=== PATIENT | female | born 1985 | race Caucasian/White ===

== ENCOUNTER 2019-10-23 15:56 | Emergency (ER) | payer MEDICAID, OTHER ==
[~2019-10-23] VITALS: Ht 167.6 cm; Wt 63.5 kg
--- NOTE | 2019-10-23 15:57 | NUR ---
[facility] TO ER BED 06
[2019-10-23 16:07] VITALS: BP 109/67
--- NOTE | 2019-10-23 16:07 | NUR ---
PT BIBA FROM HOME DUE TO OVERDOSE ON MEDICATION PER EMS. PER EMS, FAMILY CALLED 911 DUE TO PATIENT NOT WAKING UP AFTER TAKING MEDICATION. PT PRESENTS A/OX4, EUPNIC,BP WNL, TACHY 113, 99% RA, COOPERATIVE, CALM. NO DISTRESS NOTED. NO PAIN. PER PT ONLY TOOK TWO PILLS, ONE LITHIUM FOR BIPOLAR AND ONE ZYPREXA FOR PTSD. DENIES DTO/DTS/GD. ALLERGIES PNC. HX BIPOLAR,HTN,PTSD. RX ZYPREXA,LITHIUM. NO NVD. SIDE RAIL X1.
--- NOTE | 2019-10-23 16:16 | NUR ---
CALLED POISON CONTROL AT SPOKE TO SHAHIDA. PER SHAHIDA THERE ARE NO CLEAR OBSERVATION HOURS FOR PT. SHE RECOMMENDS A LITHIUM, AND CHEM DRAW EVERY 4 HRS, UNTIL CLEAR PEAK AND DOWNTREND X 2. ALSO NS @ 150-200 ML/HR, SHE STATES THIS HELPS TO EXCRETE LITHIUM FROM THE KIDNEYS. JACOBO MADE AWARE OF POISON CONTROL'S RECOMMENDATIONS.
--- NOTE | 2019-10-23 16:44 | NUR ---
TELEPSYCH ORDERED PER DR GRIFFITHS
[2019-10-23 16:47] LABS: BASOPHILS % (AUTO) 0.6 % (0.0-2.0); EOSINOPHILS # (AUTO) 0.2 K/uL (0-0.4); EOSINOPHILS % (AUTO) 1.9 % (0.0-4.0); HEMATOCRIT 38.4 % (36-48); HEMOGLOBIN 12.7 g/dL (12.0-16.0); LYMPHOCYTES # (AUTO) 2.2 K/uL (2.5-16.5); LYMPHOCYTES % (AUTO) 26.5 % (20.5-51.1); MEAN CORPUSCULAR HEMOGLOBIN 29 pg (27-31); MEAN CORPUSCULAR HGB CONC 33 g/dL (33-37); MEAN CORPUSCULAR VOLUME 87.7 fL (80-94); MONOCYTES # (AUTO) 0.9 K/uL (0.8-1.0); MONOCYTES % (AUTO) 11.1 % (1.7-9.3); NEUTROPHILS # (AUTO) 4.9 K/uL (1.8-7.7); NEUTROPHILS % (AUTO) 59.9 % (42.2-75.2); PLATELET COUNT (AUTO) 270 K/uL (140-450); RED BLOOD CELL COUNT(AUTO) 4.38 MIL/uL (4.20-5.40); RED CELL DISTRIBUTION WIDTH 15.2 % (11.6-13.7); WHITE BLOOD COUNT (AUTO) 8.1 K/uL (4.8-10.8)
[2019-10-23] MEDS: NACL 0.9% 1,000 ML IV ONE (16:47)
[2019-10-23 16:49] LABS: APPEARANCE,URINE CLEAR (CLEAR); BILIRUBIN,URINE 1+ (NEGATIVE); BLOOD, URINE 3+ (NEGATIVE); COLOR,URINE YELLOW (YELLOW); LEUKOCYTE ESTERASE ,URINE NEGATIVE (NEGATIVE); NITRITE, URINE NEGATIVE (NEGATIVE); UGLUCOSE NEGATIVE (NEGATIVE)
[2019-10-23 17:01] LABS: RBC,URINE 20-50 /HPF (0-5); WBC,URINE 0-5 /HPF (0-5)
[2019-10-23 17:02] LABS: ALBUMIN 3.9 g/dL (3.4-5.0); ANION GAP 10.7 (8-16); ASPARTATE AMINOTRANSFERASE 16 U/L (15-37); CARBON DIOXIDE 30.9 mmol/L (21-32); CHLORIDE 100 mmol/L (98-107); CREATININE 0.9 mg/dL (0.6-1.3); GFR ARICAN-AMERICAN 93 mL/min (>90); GLUCOSE 77 mg/dL (74-106); SODIUM SERUM 139 mmol/L (136-145); TOTAL BILIRUBIN 0.4 mg/dL (0.0-1.0); UREA NITROGEN, BLOOD 16 mg/dL (7-18)
[2019-10-23 17:05] LABS: ACETAMINOPHEN < 0.5 ug/ml (10-30); POTASSIUM 2.6 mmol/L (3.5-5.1); SALICYLATE < 2.8 mg/dL (2.8-20.0)
--- NOTE | 2019-10-23 17:09 | NUR ---
PT CANNOT BE AROUSED TO TALK AT THIS TIME. WILL DO ANOTHER PSYCHIATRIC COUNSELING LATER.
[2019-10-23 17:28] LABS: BARBITURATE, URINE NEGATIVE ng/ml (NEG <=200); BENZODIAZEPINE, URINE NEGATIVE ng/mL (NEG <=200); CANNABINOID, URINE POSITIVE ng/mL (NEG <=50); COCAINE, URINE NEGATIVE ng/mL (NEG <=300); OPIATE, URINE NEGATIVE ng/mL (NEG <=2000); PHENCYCLIDINE SCREEN,URINE NEGATIVE ng/mL (NEG <=25)
--- NOTE | 2019-10-23 18:00 | NUR ---
SENT TELEPSYCH FOR A SECOND TIME PER DR. GRIFFITHS
--- NOTE | 2019-10-23 18:18 | NUR ---
TELEPSYCH DOCTOR ATTEMPTED TO INTERVIEW PT AGAIN, PT WASN'T AROUSABLE TO NAME. PT WOULD WAKE UP TO TOUCH, AND FALL RIGHT BACK ASLEEP. TELEPSYCH DOCTOR STATED TO CONTACT HIM ONCE PT IS A&O, THEN HE WILL COMPLETE ASSESSMENT.
[2019-10-23] MEDS: POTASSIUM CHLORIDE 10 MEQ TABER PO ONE (18:19)
--- NOTE | 2019-10-23 18:39 | NUR ---
PT SLEEPING IN BED. NOT AROUSABLE TO NAME, BUT BY TOUCH. VSS, R/R EQUAL AND UNLABORED. SIDE RAIL X2, BED IN LOW POSITION, WILL CONTINUE TO MONITOR.
--- NOTE | 2019-10-23 19:14 | NUR ---
Pt report RECEIVED FROM CRISTAL STRINGER. Transfer of care at this time.
--- NOTE | 2019-10-23 19:27 | NUR ---
PT'S SON CHRIS CALLED AND STATED PT SHOWED UP TO HIS HOUSE YESTERDAY AND STATED SHE TRIED TO HANG HERSELF. UPON ASSESSING PT'S NECK, THERE IS NO BRUISING OR VYAS AROUND THE NECK. PT DENIES TRYING TO HARM SELF WHEN WOKEN UP. CHRIS STATES PT HAS PMH OF SCHIZOPHRENIA, AND BIPOLAR DISORDER, AND HAS A HISTORY OF LEAVING AMA. HE STATES HE IS AFRAID FOR HIS MOTHER, AND SHE HAS A HISTORY OF BECOMING COMBATIVE. HE WOULD LIKE TO BE CALLED WHEN MOTHER IS DISCHARGED OR IF SHE IS RETAINED, AND STATED HE COULD BE REACHED IF MORE MEDICAL HISTORY IS NEEDED FOR PT. CHRIS #[phone] INFORMATION PAST ON TO SUDHEER PANG; AND CRISTAL RAMIREZ
--- NOTE | 2019-10-23 20:27 | NUR ---
AT BEDSIDE SPEAKING WITH PT
--- NOTE | 2019-10-23 21:01 | NUR ---
PT ASLEEP IN BED IN POSITION OF COMFORT, BED LOW AND LOCKED, SIDERAILS UP, VSS, WILL CONTINUE TO MONITOR.
--- NOTE | 2019-10-23 21:08 | NUR ---
SPOKE WITH ROBERT (PHARMACIST) FROM POISON CONTROL @ [phone] AND GAVE UPDATE REGARDING RECENT LABS. ROBERT ADVISED TO OBTAIN LITHIUM LEVEL, SO WILL INFORM JACOBO LAGUNAS.
--- NOTE | 2019-10-23 21:58 | NUR ---
JOSE (SISTER) CALLED FOR UPDATE, JUST INFORMED HER PT IS STABLE .
--- NOTE | 2019-10-23 23:33 | NUR ---
AT BEDSIDE SPEAKING WITH PT
--- NOTE | 2019-10-23 23:36 | NUR ---
PER REPEAT TELEPSYCH REQUEST INITIATED
--- NOTE | 2019-10-23 23:42 | NUR ---
SPOKE TO JUVENAL (PHARMACIST) FROM POISON CONTROL WHO PHONED BACK FOR UPDATE. INFORMED PHARMACIST WE SENF OUT OUR LITHIUM LAB DRAW AND TO PHONE BACK LATER TO SEE IF WE HAVE THE LAB RESULTS YET.
--- NOTE | 2019-10-23 23:52 | NUR ---
PT EATING FOOD AT BEDSIDE.
--- NOTE | 2019-10-24 00:01 | NUR ---
PT SITTING UP HAVING TELE PSYCH APPOINTMENT
--- NOTE | 2019-10-24 00:37 | NUR ---
PT GIVEN ANOTHER SANDWHICH PER PT REQUEST. BLANKET PROVIDED. ALL PT NEEDS MET AT THIS TIME.
--- NOTE | 2019-10-24 00:59 | NUR ---
CALLED PTS KATHRINE PINEDO [phone] IN ATTEMPT TO FIND A RIDE HOME FOR DISCHARGED PT. MOM REFUSED TO COME STUDENT EDUCATION SPECIALIST PT. SHE SAID "SHE IS CAUSING TROUBLE AT HER HOUSE AND IT WOULD BE OK IF SHE WAS DISCHARGED WITHOUT A RIDE."
--- NOTE | 2019-10-24 01:03 | NUR ---
CALLED PTS SISTER JOSE [phone] IN AN ATTEMPT TO GET A RIDE FOR PT HOME. SISTER AGREED TO COME PUBLICATION EDITOR PT IN 15 MIN.
--- NOTE | 2019-10-24 01:08 | NUR ---
Patient discharged with v/s stable. Written and verbal after care instructions given and explained. Patient verbalized understanding. Ambulatory with steady gait. All questions addressed prior to discharge. Advised to follow up with PMD.
[2019-10-24 01:13] VITALS: BP 101/64
== END 2019-10-24 01:08 | disposition home or self-care (01) ==
LOC: MED 15:56
DX: R41.82 Altered mental status, unspecified (principal); F17.210 Nicotine dependence, cigarettes, uncomplicated; F31.89 Other bipolar disorder; I10 Essential (primary) hypertension; Z88.0 Allergy status to penicillin
CPT/HCPCS: 36415; 80053; 80178; 80305; 81001; 81025; 84484; 85025; 93005; 99284; G0480; G0482; J7030

== ENCOUNTER 2020-07-30 11:52 | Emergency (ER) | payer OTHER ==
[~2020-07-30] VITALS: Ht 154.9 cm; Wt 89.8 kg
[2020-07-30 11:59] VITALS: BP 110/58
--- NOTE | 2020-07-30 12:09 | NUR ---
Patient ambulated to bed 3. RN evaluating the patient at bedside.
--- NOTE | 2020-07-30 12:12 | NUR ---
Dr. Hinojosa is evaluating the patient at bedside.
--- NOTE | 2020-07-30 12:24 | NUR ---
PATIENT PRESENTS TO ED WITH LOWER ABD PAIN STARTED 2 WEEKS AGO . PT STATES SHE HAD POSITIVE TEST AND STATED HAD STOP TAKING HER MEDICATIONS SINCE MOTHER'S DAY . DENIES N/V/D; SKIN IS PINK/WARM/DRY; AAOX4 WITH EVEN AND STEADY GAIT; LUNGS CLEAR BL; HR EVEN AND REGULAR; PT DENIES ANY FEVER, CP, SOB, OR COUGH AT THIS TIME; PATIENT STATES PAIN OF 5/10 TO THE LOWER ABD. AT THIS TIME; VSS; PATIENT POSITIONED FOR COMFORT; HOB ELEVATED; BEDRAILS UP X2; BED DOWN. ER MD MADE AWARE OF PT STATUS.
[2020-07-30 12:34] LABS: APPEARANCE,URINE CLOUDY (CLEAR); BILIRUBIN,URINE NEGATIVE (NEGATIVE); BLOOD, URINE TRACE-I (NEGATIVE); COLOR,URINE YELLOW (YELLOW); LEUKOCYTE ESTERASE ,URINE NEGATIVE (NEGATIVE); NITRITE, URINE NEGATIVE (NEGATIVE); UGLUCOSE NEGATIVE (NEGATIVE)
[2020-07-30 12:37] LABS: BASOPHILS % (AUTO) 0.3 % (0.0-2.0); EOSINOPHILS # (AUTO) 0.2 K/uL (0-0.4); EOSINOPHILS % (AUTO) 2.8 % (0.0-4.0); HEMATOCRIT 37.5 % (36-48); HEMOGLOBIN 12.5 g/dL (12.0-16.0); LYMPHOCYTES # (AUTO) 1.5 K/uL (2.5-16.5); MEAN CORPUSCULAR HEMOGLOBIN 29 pg (27-31); MEAN CORPUSCULAR HGB CONC 33 g/dL (33-37); MEAN CORPUSCULAR VOLUME 87.9 fL (80-94); MONOCYTES # (AUTO) 0.6 K/uL (0.8-1.0); MONOCYTES % (AUTO) 9.3 % (1.7-9.3); NEUTROPHILS # (AUTO) 3.9 K/uL (1.8-7.7); NEUTROPHILS % (AUTO) 62.6 % (42.2-75.2); PLATELET COUNT (AUTO) 248 K/uL (140-450); RED BLOOD CELL COUNT(AUTO) 4.27 MIL/uL (4.20-5.40); RED CELL DISTRIBUTION WIDTH 15.1 % (11.6-13.7); WHITE BLOOD COUNT (AUTO) 6.2 K/uL (4.8-10.8)
[2020-07-30 12:57] LABS: RBC,URINE 0-5 /HPF (0-5); WBC,URINE 0-5 /HPF (0-5)
[2020-07-30 13:02] LABS: ALBUMIN 2.9 g/dL (3.4-5.0); ANION GAP 10.3 (8-16); CARBON DIOXIDE 27.6 mmol/L (21-32); CREATININE 0.5 mg/dL (0.6-1.3); POTASSIUM 3.9 mmol/L (3.5-5.1); TOTAL BILIRUBIN 0.1 mg/dL (0.0-1.0)
[2020-07-30] MEDS ORDERED: PREN-368 PO (13:06)
[2020-07-30] MEDS ORDERED: CEPH-588 PO (13:08)
[2020-07-30 13:22] VITALS: BP 115/66
--- NOTE | 2020-07-30 13:24 | NUR ---
Patient discharged with v/s stable. Written and verbal after care instructions given and explained. Patient alert, oriented and verbalized understanding of instructions. Ambulatory with steady gait. All questions addressed prior to discharge. ID band removed. Patient advised to follow up with PMD. Rx of KEFFLEX AND given. Patient educated on indication of medication including possible reaction and side effects. Opportunity to ask questions provided and answered.
== END 2020-07-30 13:24 | disposition home or self-care (01) ==
LOC: MED 11:52
DX: O23.41 Unspecified infection of urinary tract in pregnancy, first trimester (principal); O26.891 Other specified pregnancy related conditions, first trimester; R10.30 Lower abdominal pain, unspecified; Z88.0 Allergy status to penicillin; Z3A.09 9 weeks gestation of pregnancy
CPT/HCPCS: 36415; 80053; 81001; 81025; 84702; 85025; 99284

== ENCOUNTER 2021-01-26 15:53 | Observation (INO) | payer OTHER, SELFPAY ==
[~2021-01-26] VITALS: Ht 154.9 cm; Wt 94.8 kg
[~2021-01-26 15:53] MED LIST: CEPH-588 PO; PREN-368 PO
== END 2021-01-26 18:35 | disposition home or self-care (01) ==
LOC: MLD 15:53
PROVIDERS: ADMIT Obstetrics & Gynecology; ATTEND Obstetrics & Gynecology
DX: O26.893 Other specified pregnancy related conditions, third trimester (principal); R10.33 Periumbilical pain; O99.891 Other specified diseases and conditions complicating pregnancy; M54.9 Dorsalgia, unspecified; Z3A.36 36 weeks gestation of pregnancy; Z87.891 Personal history of nicotine dependence
CPT/HCPCS: 59025; 76805; G0378; Q0092

== ENCOUNTER 2021-02-14 21:43 | Emergency (ER) | payer OTHER, SELFPAY ==
[~2021-02-14] VITALS: Ht 154.9 cm; Wt 98.9 kg
[~2021-02-14 21:43] MED LIST changes: -CEPH-588 PO
[2021-02-14 22:00] VITALS: BP 129/80
--- NOTE | 2021-02-14 22:52 | NUR ---
35 YO/F BIB SELF W C/O INCISION OPENNING W SOME BLEEDING X TODAY. PT REPORTS HAVING THE ON 02/09/21. PT DENIES ANY PUSULENT DISCHARGE, FOUL SMELL, FEVERS, PAIN, N/V/D. PT REPORTS A SLIGHT STINGING SENSATION TO AREA. C-SEC INCISION IS SLIGHTLY OPEN, MINIMAL BLOOD NOTED BUT CONTROLLED, NO SIGNS OF INFECTION NOTED. PT LAYING SUPINE IN BED, IN GOWN. VSS. ERMD AT BEDSIDE. PMH:C-SEC 02/09/21 [facility]
[2021-02-14] MEDS ORDERED: CEPH-588 PO (23:02)
[2021-02-14 23:18] VITALS: BP 129/80
== END 2021-02-14 23:18 | disposition home or self-care (01) ==
LOC: MED 21:43
DX: T88.9XXA Complication of surgical and medical care, unspecified, initial encounter (principal); Z48.00 Encounter for change or removal of nonsurgical wound dressing; Z88.0 Allergy status to penicillin
CPT/HCPCS: 99283